=== PATIENT | male | born 1960 ===

== ENCOUNTER 2018-02-22 15:13 | Emergency (ER) | payer SELFPAY ==
[2018-02-22 15:22] VITALS: BP 185/85; PULSE 68; RESP 20; TEMP 98.5; O2SAT 99
--- NOTE | 2018-02-22 15:50 | C.PDOC ---
History Of Present Illness CO SYNCOPE YEST, NEW ONSET R PERIRORB AND R WRIST RASH SINCE YEST. SYNCOPE ONSET YEST AFTERNOON WHILE STANDING AND COOKING. DENIES INITIAL PRODROME, CP, RED , HEART RACING "I DIDNT FEEL IT COMING". PS AWOKE ON FLOOR, DENIES INJURY PROCEEDED TO STAND AND CONTINUE COOKING. NO RECUR SX SINCE YEST. PS NOTICED R PERIORB AND INNER R WRIST SWELLING AFTER SYNCOPE. SWELL IMPROVED COMPARED TO YEST. NO ITCH, SOB. DENIES FACIAL TRAUMA, VISION CHANGE. EXAM NAD NONTOXIC HEENT +R PERIROB ANGIOEDEMA NONPITTING, NO ERYTHEMA. EOMI, NO EYE REDNESS NO GROSS VISION DEF. NONTEND, DEFORM, CREPITUS. LUNGS CTA B/L NO W/R/R CV RRR SKIN +HIVES R INNER WRIST. INTACT NEURO NO FOCAL DEF REMAINDER NEG MDM PT ADVISED OF NEED FOR FULL SYNCOPE EVAL INCLUDING BLOOD TESTING, EKG, CXR AND CT HEAD. PT REFUSING ALL TESTING. REQUESTING EYE DROPS ONLY. ADVISED REQUESTED TREATMENT IS INAPPROPRIATE FOR HIS CURRENT CONDITION AND REQUIRES ORAL OR IV TX. REFUSING ANY TREATMENT, STATES WANTS TO LEAVE. ADVISES RISKS OF LEAVING AMA INCLUDING DETERIORATION DISABLITY AND . STATES VERBAL UNDERSTANDING AND CONTINUES TO REFUSE FURTHER EVALUATION. Time Seen by Provider: 02/22/18 15:31 Chief Complaint (Nursing): Syncope Past Medical History Vital Signs: Last Vital Signs Temp 98.5 F 02/22/18 15:20 Pulse 68 02/22/18 15:20 Resp 20 02/22/18 15:20 BP 185/85 H 02/22/18 15:20 Pulse Ox 99 02/22/18 15:20 - Medical History PMH: HTN Family History: States: Unknown Family Hx - Social History Hx Alcohol Use: No Hx Substance Use: No - Immunization History Hx Tetanus Toxoid Vaccination: No Hx Influenza Vaccination: No Hx Pneumococcal Vaccination: No ED Course And Treatment O2 Sat by Pulse Oximetry: 99 Reevaluation Time: 15:47 Reassessment Condition: Unchanged (RISKS BENEFITS D/W PT, ADVISED NEED FOR ADMISSION FOR FURTHER EVALUATION AND MANAGEMENT. PT VOICES UNDERSTANDING, REFUSING ADMISSION. PT ADVISED TO FU PMD NELLY, RETURN IF WORSENING SYMPTOMS.) Disposition Counseled Patient/Family Regarding: Diagnosis, Need For Followup, Rx Given - Disposition Referrals: [facility] [Outside] [facility] [Outside] Disposition: AGAINST MEDICAL ADVICE Disposition Time: 15:48 Condition: STABLE Additional Instructions: YOU HAVE BEEN OFFERED EVALUATION AND TREATMENT FOR SYNCOPE AND ANGIOEDEMA. YOU HAVE BEEN ADVISED OF THE RISKS AND BENEFITS OF EVALUATION INCLUDING DISABILITY, DETERIORATION AND . YOU HAVE BEEN OFFERED INTRAVENOUS MEDICATION TREATMENT , EKG, BLOOD TESTING AND RADIOLOGIC TESTING AND HAVE REFUSED ALL TREATMENT AND TESTS. FOLLOW UP WITH YOUR PMD. RETURN IF WORSENING SYMPTOMS. Prescriptions: predniSONE [Prednisone] 60 mg PO DAILY #15 tab Instructions: Syncope (Fainting) (DC), Angioedema (DC), Leaving Against Medical Advice - Clinical Impression Clinical Impression: Angioedema, Syncope
== END 2018-02-22 15:55 | disposition left against medical advice (07) ==
LOC: C.ER 15:13
DX: T78.3XXA Angioneurotic edema, initial encounter (principal); R55 Syncope and collapse; I10 Essential (primary) hypertension

== ENCOUNTER 2018-06-04 16:34 | Emergency (ER) | payer MEDICAID ==
[2018-06-04 16:43] VITALS: TEMP 98
[2018-06-04 17:47] LABS: BASO % 0.5 % (0.0-2.0); HEMOGLOBIN 13.4 g/dL (12.0-18.0); LYMPH # 1.2 K/uL (1.0-4.3); MEAN CELL VOLUME 89.4 fL (80.0-94.0); MEAN CORPUSCULAR HGB CONC 33.6 g/dL (33.0-37.0); MEAN PLATELET VOLUME 9.1 fL (7.2-11.7); MONO # 0.6 K/uL (0.0-0.8); MONO % 6.7 % (0.0-10.0); NEUT # 7.5 K/uL (1.8-7.0); NEUT % 79.8 % (50.0-75.0); RBC 4.47 Mil/uL (4.40-5.90); RED CELL DISTRIBUTION WIDTH 13.2 % (11.5-14.5); WHITE BLOOD COUNT 9.4 K/uL (4.8-10.8)
--- NOTE | 2018-06-04 17:47 | C.PDOC ---
History Of Present Illness 57 y/o male with past medical history of HTN presents to the ED complaining of chest pain, onset around 11:00pm last night. Pain was left-sided and constant until 7:00am this morning when it resolved spontaneously. Patient states he also felt short of breath last night. Otherwise he denies associated dizziness, visual changes, headache, palpitations, weakness, leg pain/swelling, nausea, vomiting, or diaphoresis. Currently the chest pain and SOB have completely resolved and patient states he feels fine. Patient has had prior visits here for chest pain in the past, but denies ever having a stress test or cardiac catheterization. He is a non-smoker. Patient reports that at times when he has chest pain, doctors have given him an unknown white pill with improvement. He did not take any medication for symptom relief last night or today. Time Seen by Provider: 06/04/18 17:15 Chief Complaint (Nursing): Chest Pain History Per: Patient History/Exam Limitations: no limitations Onset/Duration Of Symptoms: Hrs Current Symptoms Are (Timing): Gone Associated Symptoms: Dyspnea Additional History Per: Prior Records Past Medical History Reviewed: Historical Data, Nursing Documentation, Vital Signs Vital Signs: Last Vital Signs Temp 98.0 F 06/04/18 16:40 Pulse 90 06/04/18 19:12 Resp 14 06/04/18 19:12 BP 140/81 06/04/18 19:12 Pulse Ox 98 06/04/18 19:12 - Medical History PMH: HTN Surgical History: No Surg Hx Family History: States: Unknown Family Hx - Social History Hx Tobacco Use: No Hx Alcohol Use: No Hx Substance Use: No - Immunization History Hx Tetanus Toxoid Vaccination: No Hx Influenza Vaccination: No Hx Pneumococcal Vaccination: No Review Of Systems Except As Marked, All Systems Reviewed And Found Negative. Constitutional: Negative for: Fever, Chills, Sweats Eyes: Negative for: Vision Change Cardiovascular: Positive for: Chest Pain. Negative for: Palpitations Respiratory: Positive for: Shortness of Breath Gastrointestinal: Negative for: Nausea, Vomiting, Abdominal Pain Musculoskeletal: Negative for: Leg Pain Neurological: Negative for: Weakness, Numbness, Headache, Dizziness Physical Exam - Physical Exam Appears: Non-toxic, No Acute Distress Skin: Warm, Dry, No Rash Head: Atraumatic, Normacephalic Eye(s): bilateral: Normal Inspection, PERRL, EOMI Oral Mucosa: Moist Neck: Normal ROM, Supple Chest: Symmetrical, No Tenderness Cardiovascular: Rhythm Regular, No Murmur Respiratory: Normal Breath Sounds, No Rales, No Rhonchi, No Wheezing Gastrointestinal/Abdominal: Soft, No Tenderness, No Distention Back: Normal Inspection, No CVA Tenderness Extremity: Bilateral: Atraumatic, Normal Color And Temperature, Normal ROM Pulses: Left Radial: Normal, Right Radial: Normal Neurological/Psych: Oriented x3, Normal Speech, Normal Cranial Nerves Gait: Steady ED Course And Treatment - Laboratory Results Result Diagrams: 06/04/18 17:38 06/04/18 17:38 ECG: Interpreted By Me ECG Rhythm: Sinus Rhythm ECG Interpretation: Normal Interpretation Of ECG: normal axis, normal intervals, no ectopy Rate From EC O2 Sat by Pulse Oximetry: 99 (RA) Pulse Ox Interpretation: Normal - Radiology CXR: Interpreted by Me CXR Interpretation: Yes: No Acute Disease Medical Decision Making Medical Decision Making: Impression: Left-sided chest pain Initial Plan: --EKG --CMP --Troponin I --CBC --Chest X-Ray --IV fluids --Reassessment and disposition Patient with no complaints upon initial evaluation, symptoms had subsided prior to arrival to ED. EKG, CXR, and labs were all unremarkable. Patient continued to deny chest pain or dyspnea throughout ED course. Results discussed with patient. Advised outpatient followup. Patient verbalized understanding. Stable for discharge home. Disposition - Disposition Disposition: HOME/ ROUTINE Disposition Time: 19:27 Condition: GOOD Additional Instructions: BOSTON LEÓN, thank you for letting us take care of you today. Your provider was Franchesca Shelton MD and you were treated for CHEST PAINS/LT SIDE HEAD PAIN. The emergency medical care you received today was directed at your acute symptoms. If you were prescribed any medication, please fill it and take as directed. It may take several days for your symptoms to resolve. Return to the Emergency Department if your symptoms worsen, do not improve, or if you have any other problems. Please contact your doctor or call one of the physicians/clinics you have been referred to that are listed on the Patient Visit Information form that is included in your discharge packet. Bring any paperwork you were given at discharge with you along with any medications you are taking to your follow up visit. Our treatment cannot replace ongoing medical care by a primary care provider outside of the emergency department. Thank you for allowing the [facility] team to be part of your care today. If you had an X-Ray or CT scan: A Radiologist will review the ED reading if any change in treatment is needed we will contact you. If you had a blood, urine, or wound culture: It will take several days for the results, if any change in treatment is needed we will contact you. If you had an STI test: It will take 48 hours for the results. Please call after 1 week if you have not heard back. Instructions: Chest Pain (DC) Forms: [employer] (Grenadian) - Clinical Impression Clinical Impression: Chest pain - Scribe Statement The provider has reviewed the documentation as recorded by the Dean Bhatt Provider Attestation: All medical record entries made by the Dean were at my direction and personally dictated by me. I have reviewed the chart and agree that the record accurately reflects my personal performance of the history, physical exam, medical decision making, and the department course for this patient. I have also personally directed, reviewed, and agree with the discharge instructions and disposition.
[2018-06-04 17:58] LABS: ALB/GLOB RATIO 1.2 (1.0-2.1); ALBUMIN 4.9 g/dL (3.5-5.0); ALT/SGPT 18 U/L (21-72); AST/SGOT 31 U/L (17-59); BLOOD UREA NITROGEN 27 mg/dL (9-20); CALCIUM 10.1 mg/dl (8.6-10.4); GFR AFRICAN-AMERICAN 58; GFR NON-AFRICAN AMERICAN 48
[2018-06-04 19:13] VITALS: BP 140/81; PULSE 90; RESP 14
[2018-06-04 23:21] VITALS: O2SAT 99
--- NOTE | 2018-06-05 08:53 | RAD ---
Date of service: 06/04/2018 PROCEDURE: CHEST RADIOGRAPH, 1 VIEW HISTORY: chest pain COMPARISON: None available. FINDINGS: LUNGS: The lungs are well inflated and clear. PLEURA: No pneumothorax or pleural fluid seen. CARDIOVASCULAR: Normal. OSSEOUS STRUCTURES: No significant abnormalities. VISUALIZED UPPER ABDOMEN: Normal. OTHER FINDINGS: None. IMPRESSION: No active pulmonary disease.
== END 2018-06-04 19:27 | disposition home or self-care (01) ==
LOC: C.ER 16:34
DX: R07.9 Chest pain, unspecified (principal)

== ENCOUNTER 2018-08-03 23:29 | Emergency (ER) | payer MEDICAID ==
[2018-08-04 00:26] VITALS: BP 162/81; PULSE 63; RESP 18; TEMP 97.7; O2SAT 100
--- NOTE | 2018-08-04 00:39 | C.PDOC ---
History Of Present Illness 57 year old male presents to the ED c/o right foot pain that worsens when walking. Patient states he is on his feet a lot during the day and also plays a lot of sports and outdoor activities. Patient also noticed discoloration of right great toenail. Patient reports he has a Podiatry appointment on Friday. Patient denies injury, fall, trauma, weakness, numbness. Time Seen by Provider: 08/03/18 23:42 Chief Complaint (Nursing): Lower Extremity Problem/Injury History Per: Patient History/Exam Limitations: no limitations Onset/Duration Of Symptoms: Days Current Symptoms Are (Timing): Still Present Recent travel outside of the [place]: No Additional History Per: Patient - Ankle/Foot Description Of Injury: Other Past Medical History Reviewed: Historical Data, Nursing Documentation, Vital Signs Vital Signs: Last Vital Signs Temp 97.7 F 08/04/18 00:25 Pulse 63 08/04/18 00:25 Resp 18 08/04/18 00:25 BP 162/81 H 08/04/18 00:25 Pulse Ox 100 08/04/18 00:25 - Medical History PMH: HTN Surgical History: No Surg Hx Family History: States: Unknown Family Hx - Social History Hx Tobacco Use: No Hx Alcohol Use: Yes Hx Substance Use: No - Immunization History Hx Tetanus Toxoid Vaccination: No Hx Influenza Vaccination: No Hx Pneumococcal Vaccination: No Review Of Systems Constitutional: Negative for: Fever, Chills Gastrointestinal: Negative for: Nausea, Vomiting Musculoskeletal: Positive for: Foot Pain. Negative for: Leg Pain Skin: Negative for: Rash Neurological: Negative for: Weakness, Numbness Physical Exam - Physical Exam Appears: Non-toxic, No Acute Distress Skin: Normal Color, Warm, Dry Head: Atraumatic, Normacephalic Eye(s): bilateral: Normal Inspection Extremity: Normal ROM, No Tenderness, Capillary Refill (< 2 seconds), No Swelling, Other (dry scally skin to right foot plantar aspect. Yellow discoloration of distal right great toenail with no fluctuance, erythema, discharge. Callus on plantar aspect right foot. ) Pulses: Left Dorsalis Pedis: Normal, Right Dorsalis Pedis: Normal Neurological/Psych: Oriented x3, Normal Speech, Normal Motor, Normal Sensation Gait: Steady ED Course And Treatment O2 Sat by Pulse Oximetry: 100 (ON RA) Pulse Ox Interpretation: Normal Progress Note: Patient was instructed to follow up with Podiatry on Friday. Disposition Counseled Patient/Family Regarding: Diagnosis, Need For Followup - Disposition Referrals: pODIATRY, pmd [Other] Disposition: HOME/ ROUTINE Disposition Time: 00:39 Condition: STABLE Additional Instructions: PLEASE KEEP APPOINTMENT WITH ORTHOPEDIST TAKE MEDICATIONS DIRECTED RETURN TO ER IF WORSE Prescriptions: Clotrimazole 1% Cream [Lotrimin 1% CREAM] 1 applic EXT BID #60 g Instructions: Corns and Calluses Forms: [employer] (Omani) - Clinical Impression Clinical Impression: Foot callus, Tinea pedis of right foot - PA / BLOCK TESTER / Resident Statement MD/DO has reviewed & agrees with the documentation as recorded. - Scribe Statement The provider has reviewed the documentation as recorded by the Scribe Hossein Francis All medical record entries made by the Scribrain were at my direction and personally dictated by me. I have reviewed the chart and agree that the record accurately reflects my personal performance of the history, physical exam, medical decision making, and the department course for this patient. I have also personally directed, reviewed, and agree with the discharge instructions and disposition.
== END 2018-08-04 00:46 | disposition home or self-care (01) ==
LOC: C.ER 23:29
DX: L84 Corns and callosities (principal); B35.3 Tinea pedis; I10 Essential (primary) hypertension

== ENCOUNTER 2018-10-23 23:21 | Emergency (ER) | payer MEDICAID ==
[2018-10-24 00:18] VITALS: TEMP 98
--- NOTE | 2018-10-24 01:32 | C.PDOC ---
History Of Present Illness 58 year old male presents to the ED c/o right knee and right foot pain for the past 2 months. Patient was seen in the ED on 08/03/18 for same presentation. Patient denies fever, chills, injury, fall, trauma, weakness, numbness. Time Seen by Provider: 10/24/18 00:33 Chief Complaint (Nursing): Lower Extremity Problem/Injury History Per: Patient History/Exam Limitations: no limitations Onset/Duration Of Symptoms: Days Current Symptoms Are (Timing): Still Present Recent travel outside of the [place]: No Additional History Per: Patient - Knee Description Of Injury: Other - Ankle/Foot Description Of Injury: Other Past Medical History Reviewed: Historical Data, Nursing Documentation, Vital Signs Vital Signs: Last Vital Signs Temp 98 F 10/24/18 00:10 Pulse 78 10/24/18 00:10 Resp 18 10/24/18 00:10 BP 142/66 10/24/18 00:10 Pulse Ox 97 10/24/18 00:10 - Medical History PMH: HTN Surgical History: No Surg Hx Family History: States: Unknown Family Hx - Social History Hx Tobacco Use: No Hx Alcohol Use: Yes Hx Substance Use: No - Immunization History Hx Tetanus Toxoid Vaccination: No Hx Influenza Vaccination: No Hx Pneumococcal Vaccination: No Review Of Systems Constitutional: Negative for: Fever, Chills Respiratory: Negative for: Shortness of Breath Gastrointestinal: Negative for: Vomiting, Abdominal Pain Musculoskeletal: Positive for: Leg Pain, Foot Pain Skin: Negative for: Rash Neurological: Negative for: Weakness, Numbness Physical Exam - Physical Exam Appears: Non-toxic, No Acute Distress Skin: Normal Color, Warm, Dry Head: Atraumatic, Normacephalic Eye(s): bilateral: Normal Inspection Cardiovascular: Rhythm Regular Respiratory: Normal Breath Sounds Extremity: Normal ROM, No Tenderness, No Pedal Edema, No Calf Tenderness, Capillary Refill (< 2 seconds), No Deformity, No Swelling, Other (callus plantar aspect right great toe extending down. ) Extremity: Bilateral: Atraumatic Pulses: Left Dorsalis Pedis: Normal, Right Dorsalis Pedis: Normal Neurological/Psych: Oriented x3, Normal Speech, Normal Cognition, Normal Motor, Normal Sensation Gait: Steady ED Course And Treatment O2 Sat by Pulse Oximetry: 97 (ON RA) Pulse Ox Interpretation: Normal Progress Note: Plan: - Motrin 600 mg PO. Patient was advised to follow up with Podiatry for further evaluation. Disposition Counseled Patient/Family Regarding: Diagnosis - Disposition Referrals: Podiatry Clinic [Outside] [facility] [Outside] [facility] [Outside] Disposition: HOME/ ROUTINE Disposition Time: 01:32 Condition: STABLE Additional Instructions: motrin for pain Use knee brace Leg elevation Return to ER if worse Prescriptions: Ibuprofen [Motrin] 600 mg PO Q6H #30 tab Instructions: Chronic Knee Pain (DC) Forms: [employer] (Angolan) Print Language: UZBEK - POA Present On Arrival: [facility] - Clinical Impression Clinical Impression: Arthralgia of right knee, Foot callus - PA / GROCERY CADDY / Resident Statement MD/DO has reviewed & agrees with the documentation as recorded. - Scribe Statement The provider has reviewed the documentation as recorded by the Scribe Hossein Francis All medical record entries made by the Scribe were at my direction and personally dictated by me. I have reviewed the chart and agree that the record accurately reflects my personal performance of the history, physical exam, medical decision making, and the department course for this patient. I have also personally directed, reviewed, and agree with the discharge instructions and disposition.
[2018-10-24 01:40] VITALS: BP 130/70; PULSE 80; RESP 14
[2018-10-24 02:27] VITALS: O2SAT 97
== END 2018-10-24 01:40 | disposition home or self-care (01) ==
LOC: C.ER 23:21
DX: M25.561 Pain in right knee (principal); L84 Corns and callosities; I10 Essential (primary) hypertension